=== PATIENT | female | born 1995 | race Two or more races ===

== ENCOUNTER 2017-04-03 12:16 | Emergency (ER) | payer OTHER ==
[2017-04-03 12:21] VITALS: BP 118/77; PULSE 89; TEMP 99.5; BMI 23.7
--- NOTE | 2017-04-03 12:42 | PDOC ---
History of Present Illness - General Chief Complaint: Rash Stated Complaint: hives Time Seen by Provider: 04/03/17 12:27 History Source: Patient Exam Limitations: No Limitations - History of Present Illness Initial Comments: 04/03/17 12:38 21 y/o female with rash on body since yesterday. No fever or chills. No new products. Using a cream for her folliculitis. Took Benadryl last night and a little better. No SOB. Feels fine otherwise. Itching but better this morning. Severity: Yes: mild Past History - Past Medical History Allergies/Adverse Reactions: Allergies Allergy/AdvReac Type Severity Reaction Status Date / Time No Known Allergies Allergy Verified 04/03/17 12:17 Home Medications: Ambulatory Orders Methylprednisolone [Medrol Dose Baljit] 4 mg PO ASDIR #21 tablet 04/03/17 Asthma: No Diabetes: No HTN: No Other medical history: denies - Immunization History Immunization Up to Date: Yes - Psycho/Social/Smoking Cessation Hx Anxiety: No Suicidal Ideation: No Smoking History: Never smoked Have you smoked in the past 12 months: No Hx Alcohol Use: Yes Drug/Substance Use Hx: No Substance Use Type: Alcohol Review of Systems - Review of Systems Able to Perform ROS?: Yes Is the patient limited Iraqi proficient: No Constitutional: No: Chills, Diaphoresis Respiratory: No: Cough, Shortness of Breath Cardiac (ROS): No: Edema, Palpitations ABD/GI: No: Nausea, Vomiting Integumentary: Yes: Erythema, Pruritus, Rash All Other Systems: Reviewed and Negative *Physical Exam - Vital Signs Last Vital Signs Temp Pulse Resp BP Pulse Ox 99.5 F 89 16 118/77 97 04/03/17 12:17 04/03/17 12:17 04/03/17 12:17 04/03/17 12:17 04/03/17 12:17 - Physical Exam General Appearance: Yes: Nourished, Appropriately Dressed. No: Apparent Distress HEENT: positive: EOMI, MANOLO, Normal ENT Inspection, Pharynx Normal Neck: positive: Normal Thyroid, Supple Respiratory/Chest: positive: Lungs Clear, Normal Breath Sounds Cardiovascular: positive: Regular Rhythm, Regular Rate, S1, S2 Vascular Pulses: Femoral (R): 4+, Femoral (L): 4+, Carotid (R): 4+, Carotid (L) : 4+, Dorsalis-Pedis (R): 4+, Doralis-Pedis (L): 4+ Gastrointestinal/Abdominal: positive: Normal Bowel Sounds, Flat, Soft. negative : Tender, Pulsatile Mass Musculoskeletal: positive: Normal Inspection. negative: CVA Tenderness Integumentary: positive: Normal Color, Dry, Warm, Rash (small red flat rash over thigh back and arm). negative: Jaundice, Hives, Swelling, Ecchymosis, Bruising Neurologic: positive: firer locomotive II-XII NML intact, Fully Oriented, Alert, Normal Mood/ Affect, Normal Response, Motor Strength 01/03 ED Treatment Course - ADDITIONAL ORDERS Additional order review: 04/03/17 12:41 Pt appears to have contact dermatitis Will prescribe Medrol dose pack and Benadryl If worsen return to ER *DC/Admit/Observation/Transfer Diagnosis at time of Disposition: Contact dermatitis Qualifiers: Contact dermatitis type: unspecified Contact dermatitis trigger: unspecified trigger Qualified Code(s): L25.9 - Unspecified contact dermatitis, unspecified cause - Discharge Dispostion Condition at time of disposition: Stable Admit: No - Patient Instructions Printed Discharge Instructions: DI for Contact Dermatitis Additional Instructions: Medrol dose pack as directed Benadryl 25 mg every 6 hr as needed Hydrocortisone cram 1% to arae 3x/day as needed for 1 week If worsen return to ER
== END 2017-04-03 12:54 | disposition home or self-care (01) ==
LOC: FER 12:16
DX: L25.9 Unspecified contact dermatitis, unspecified cause (principal)
CPT/HCPCS: 99281-25

== ENCOUNTER 2018-10-22 10:22 | Emergency (ER) | payer OTHER ==
--- NOTE | 2018-10-22 10:31 | PDOC ---
History of Present Illness - General Chief Complaint: Migraine Headache Stated Complaint: MIGRAINE Time Seen by Provider: 10/22/18 10:29 - History of Present Illness Initial Comments: 10/22/18 10:39 23 year old with a history of migraines followed by Dr. 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 denies nausea, vomtiing, fever able to sleep through night current;y headache is not bothering her she desires MRI now as she is unsure that she can make it to Friday She has MRI scheduled Friday and EEG with Neuro on Friday, She denies any other complaints at bedside. denies changes in vision or hearing , chest pain or shortness of breath. currently asymptomatic Past History - Past Medical History Allergies/Adverse Reactions: Allergies Allergy/AdvReac Type Severity Reaction Status Date / Time No Known Allergies Allergy Verified 10/22/18 10:43 Home Medications: Ambulatory Orders Aspirin/Acetaminophen/Caffeine [Excedrin Migraine Caplet] 1 each PO BID PRN Magnesium Oxide [Magnesium] 400 mg PO DAILY 10/22/18 Rizatriptan Benzoate [Rizatriptan] 10 mg PO Q12H PRN 10/22/18 Asthma: No Diabetes: No HTN: No - Immunization History Immunization Up to Date: Yes - Suicide/Smoking/Psychosocial Hx Smoking History: Never smoked Have you smoked in the past 12 months: No Hx Alcohol Use: Yes Drug/Substance Use Hx: No Substance Use Type: Alcohol *DC/Admit/Observation/Transfer Diagnosis at time of Disposition: Migraine Qualifiers: Migraine type: unspecified Status migrainosus presence: without status migrainosus Intractability: not intractable Qualified Code(s): G43.909 - Migraine, unspecified, not intractable, without status migrainosus - Discharge Dispostion Disposition: HOME Condition at time of disposition: Fair Decision to Admit order: No - Referrals Referrals: Malinda Dobbs MD [Primary Care Provider] - - Patient Instructions Printed Discharge Instructions: DI for Migraine Additional Instructions: You were seen in the ED for complaints of migraine symptoms and desire for MRI. There does not appear to be an immediate or emergent need for Brain CT or MRI at this time. As you have an MRI and EEG scheduled with your Neurologist Dr. Alcantara in 3 days, please keep this appointment and take your medications as directed. You are advised to follow up with your Primary Care Physician within 1 week. Try to use your glasses consistently to see if your symptoms resolve. If your symptoms persist your headache may caused by caffeine withdrawal. Avoid excessive alcohol use. Return to the ED immediately if you experience worsening migraine uncontrolled by medications, nausea, vomiting, acute dizziness or vertigo, fevers or loss of consciousness. - Post Discharge Activity
--- NOTE | 2018-10-22 10:47 | PDOC ---
Attending Attestation - Resident Resident Name: Davina Perales - ED Attending Attestation I have performed the following: I have examined & evaluated the patient, The case was reviewed & discussed with the resident, I agree w/resident's findings & plan, Exceptions are as noted - HPI HPI: 10/22/18 10:51 23y F hx of migraine on tryptans/magnesium being followed by neurology presents with intermittent headache since friday, improved with meds at home but not completely resolved. Pt ntose her headache seems worse in the AM, and improved throughout the day. Endorses photo/phonophobia, is pressure like around her temples - no associated n/v, neck pain, back pain, blurry vision, numbness/ tingling/weakness, fever/chills. pt notse she drinks 1 cup of coffee in the AM and her headache seems to im,prove with her coffee intake. Her father also notes thather headache seems to improve when she uses her glasses. Pt has outpatient MRI/EEG scheduled for next week, but [presented today due to rquesting MRI. nots her headache is currently resolved and is no pain currently (last time she had pain was this AM). - Physicial Exam PE: 10/22/18 12:24 ExamL General: no acute distress, well appearing, well neurished HEAD: Normocephalic, atraumatic. EYES: extraocular movements intact, sclera anicteric, conjunctiva clear. EXTREMITIES: Normal range of motion, NEUROLOGICAL: No facial assymetry, Normal speech, moving all 4 extremities spontaneously ands ymemtrically, normal gait PSYCH: Normal mood, normal affect. SKIN: Warm, Dry, normal turgor, - Medical Decision Making 10/22/18 12:25 suspect tension headache vs migraine headache no clinical suspicion for a dangerous headache will have pt use her glassess more regularly, if this does not resolve her haedache, will have her titrate off caffeine. will have her fu with neuro for further management
[2018-10-22 10:51] VITALS: BP 117/72; PULSE 64; TEMP 98.3; BMI 25.8
== END 2018-10-22 11:50 | disposition home or self-care (01) ==
LOC: FER 10:22
DX: G43.909 Migraine, unspecified, not intractable, without status migrainosus (principal)
CPT/HCPCS: 99281-25

== ENCOUNTER 2019-07-25 02:52 | Day surgery (SDC) | payer BC, OTHER ==
--- NOTE | 2019-07-25 03:14 | PDOC ---
History of Present Illness - General Chief Complaint: Pain, Acute Stated Complaint: ABD PAIN Time Seen by Provider: 07/25/19 02:54 - History of Present Illness Initial Comments: 07/25/19 03:15 This 24-year-old woman with a history of GERD and migraine headache presents with few hour history of abdominal pain. Patient was awakened by burning epigastric pain at approximately 1 AM today. Over the next hour, burning pain resolved spontaneously but she began to have right upper quadrant and right lower quadrant crampy pain associated with nausea.Although the pain has been intermittently severe, she currently has no pain or nausea. Patient states that she was unable to vomit; last bowel movement was approximately 24 hours ago and was normal. No fever/chills. Patient is currently completing a normal menstrual cycle. She denies dysuria, hematuria, urinary frequency/urgency. No unusual food ingestion/outside prepared meal. 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 No known allergies/on no medications Non-smoker No daily alcohol or recreational drug use Past History - Past Medical History Allergies/Adverse Reactions: Allergies Allergy/AdvReac Type Severity Reaction Status Date / Time No Known Allergies Allergy Verified 10/22/18 10:43 Home Medications: Ambulatory Orders Aspirin/Acetaminophen/Caffeine [Excedrin Migraine Caplet] 1 each PO BID PRN Magnesium Oxide [Magnesium] 400 mg PO DAILY 10/22/18 Rizatriptan Benzoate [Rizatriptan] 10 mg PO Q12H PRN 10/22/18 Acetaminophen [Tylenol .Extra-Strength -] 1,000 mg PO Q6H PRN tablet 07/26/19 oxyCODONE HCL [Roxicodone -] 5 mg PO Q6H PRN #10 tablet MDD 4 tabs 07/26/19 Asthma: No COPD: No Diabetes: No HTN: No - Immunization History Immunization Up to Date: Yes - Psycho Social/Smoking Cessation Hx Smoking History: Never smoked Have you smoked in the past 12 months: No Hx Alcohol Use: Yes Drug/Substance Use Hx: No Substance Use Type: Alcohol Review of Systems - Review of Systems Able to Perform ROS?: Yes Comments:: 12 point review of systems is negative except for what is noted in the history of present illness *Physical Exam - Vital Signs Last Vital Signs Temp Pulse Resp BP Pulse Ox 98.6 F 69 16 119/68 97 07/25/19 02:53 07/25/19 02:53 07/25/19 02:53 07/25/19 02:53 07/25/19 02:53 - Physical Exam Comments: GENERAL: Adult female, alert and oriented x3 in no acute distress HEAD: Normal with no signs of trauma. EYES: PERRLA, EOMI, sclera anicteric, conjunctiva clear. ENT: Ears normal, nares patent, oropharynx clear without exudates. Moist mucous membranes. NECK: Normal range of motion, supple without lymphadenopathy, JVD, or masses. LUNGS: Breath sounds equal, clear to auscultation bilaterally. No wheezes, and no crackles. HEART:Regular rate and rhythm, normal S1 and S2 without murmur, rub or gallop. ABDOMEN:.normal bowel sounds; moderate right lower quadrant tenderness without rebound or involuntary guarding; no masses No distention. EXTREMITIES: Normal range of motion, no edema. No clubbing or cyanosis. No erythema, or tenderness. NEUROLOGICAL: Cranial nerves II through XII grossly intact. Normal speech. No focal neurologic deficits MUSCULOSKELETAL: Back non-tender to palpation, no CVA tenderness SKIN: Warm, Dry, normal turgor, no rashes or lesions noted. ED Treatment Course - LABORATORY CBC & Chemistry Diagram: 07/26/19 08:45 07/26/19 08:45 ED Progress Note - Progress Note Progress Note: This 24-year-old woman presents with few hour history of abdominal pain, first epigastric and right-sided (flank, then right lower quadrant). Although she initially had nausea, this symptom has resolved but pain has persisted. Exam is noted above: Tenderness without peritoneal irritation signs in the right lower quadrant Differential includes acute appendicitis, gastroenteritis, renal colic, ovarian process CBC/chemistry profile/PGU/urinalysis sent 07/25/19 06:43 Medical Decision Making - Medical Decision Making 07/25/19 06:33 Laboratory evaluation notable for white blood cell count of 15,300 with neutrophil predominance (84%); labs otherwise unremarkable (some hematuria in urinalysis but patient is currently menstruating) Since the patient continues to have right lower quadrant pain (states that it somewhat worse), although she has not redeveloped nausea, and has elevated white blood cell count, abdominal/pelvic CT with IV and oral contrast will be performed to fully rule out acute appendicitis. Results and plan discussed with the patient and her mother who understand and agree. Discharge - Discharge Information Problems reviewed: Yes Clinical Impression/Diagnosis: Appendicitis Qualifiers: Appendicitis type: acute appendicitis Acute appendicitis type: with localized peritonitis Appendicitis gangrene presence: without gangrene Appendicitis perforation presence: without perforation Appendicitis abscess presence: without abscess Qualified Code(s): K35.30 - Acute appendicitis with localized peritonitis, without perforation or gangrene Condition: Improved - Additional Discharge Information - Follow up/Referral - Patient Discharge Instructions - Post Discharge Activity
[2019-07-25 05:13] LABS: BASO % 0.2 % (0-2.0); EOS % 0.7 % (0-4.5); HEMATOCRIT 38.9 % (32.4-45.2); HEMOGLOBIN 12.5 GM/dL (10.7-15.3); LYMPH % 11.3 % (8-40); MCH 24.3 pg (25.7-33.7); MCHC 32.1 g/dl (32.0-36.0); MEAN CELL VOLUME 75.8 fl (80-96); MEAN PLT VOLUME 9.1 fl (7.5-11.1); MONO % 4.1 % (3.8-10.2); NEUT % 83.7 % (42.8-82.8); PLATELET COUNT 280 K/MM3 (134-434); RBC 5.13 M/mm3 (3.60-5.2); RDW 14.3 % (11.6-15.6); WHITE BLOOD COUNT 15.3 K/mm3 (4.0-10.0)
[2019-07-25 05:16] LABS: EPI CELLS 8.9 /HPF (0-5/HPF); HYALINE CASTS 5 /lpf (0-8); PH,URINE 6.5 (5.0-8.0); URINE APPEARANCE CLEAR; URINE BILIRUBIN NEGATIVE (NEGATIVE); URINE COLOR YELLOW; URINE GLUCOSE (UA) NEGATIVE (NEGATIVE); URINE KETONE NEGATIVE (NEGATIVE); URINE LEUK ESTERASE NEGATIVE (NEGATIVE); URINE NITRITE NEGATIVE (NEGATIVE); URINE PROTEIN NEGATIVE (NEGATIVE); URINE RBC 4 /hpf (0-4); URINE UROBILINOGEN 0.2 mg/dL (0.2-1.0); URINE WBC 5 /hpf (0-5)
[2019-07-25 05:41] LABS: ALBUMIN 4.1 g/dl (3.4-5.0); BILIRUBIN,TOTAL 0.2 mg/dL (0.2-1); BLOOD UREA NITROGEN 14.6 mg/dL (7-18); CALCIUM 8.8 mg/dL (8.5-10.1); CREATININE 0.5 mg/dL (0.55-1.3); POTASSIUM 3.6 mmol/L (3.5-5.1); TOT PROT 6.9 g/dl (6.4-8.2)
[2019-07-25] MEDS ORDERED: CEFTRIAXONE 1,000 MG in DEXTROSE 5%-WATER - 50 ML IVPB ONE (09:27)
--- NOTE | 2019-07-25 09:30 | PDOC ---
*Physical Exam - Vital Signs Last Vital Signs Temp Pulse Resp BP Pulse Ox 98.5 F 68 16 113/70 100 07/25/19 06:32 07/25/19 06:32 07/25/19 06:32 07/25/19 06:32 07/25/19 06:32 ED Treatment Course - LABORATORY CBC & Chemistry Diagram: 07/25/19 03:30 07/25/19 03:30 - ADDITIONAL ORDERS Additional order review: Laboratory Results 07/25/19 07/25/19 07/25/19 03:30 03:30 03:30 Sodium 137 Potassium 3.6 Chloride 105 Carbon Dioxide 28 Anion Gap 4 L BUN 14.6 Creatinine 0.5 L Est GFR (CKD-EPI)AfAm 155.90 Est GFR (CKD-EPI)NonAf 134.52 Random Glucose 100 Calcium 8.8 Total Bilirubin 0.2 AST 11 L ALT 23 Alkaline Phosphatase 45 Total Protein 6.9 Albumin 4.1 Urine Color Yellow Urine Appearance Clear Urine pH 6.5 Ur Specific [place] 1.028 Urine Protein Negative Urine Glucose (UA) Negative Urine Ketones Negative Urine Blood 3+ H Urine Nitrite Negative Urine Bilirubin Negative Urine Urobilinogen 0.2 Ur Leukocyte Esterase Negative Urine WBC (Auto) 5 Urine RBC (Auto) 4 Urine Casts (Auto) 5 U Epithel Cells (Auto) 8.9 Urine Bacteria (Auto) 145.0 Urine HCG, Qual Negative 07/25/19 03:30 RBC 5.13 MCV 75.8 L MCHC 32.1 RDW 14.3 MPV 9.1 Neutrophils % 83.7 H Lymphocytes % 11.3 Monocytes % 4.1 Eosinophils % 0.7 Basophils % 0.2 Medical Decision Making - Medical Decision Making 07/25/19 09:29 pt signed out to al from Dr Lancaster around 7am. Pt has been comfortable here in ED and has declined abx. CT suggestive of acute appendicitis. will give flagyl/ctx will discuss with surgery 07/25/19 10:20 Case was discussed with WING Lara - Accepted for admission for further management of appendicitis, Accepted to Dr. Aceves service of medicine Case was discussed with Dr. Cannon, request transfer to [facility] as There is no weekend OR capability here Case discussed in detail with admitting physician including history, physical exam and ancillary studies. Admitting physician has assumed care for the patient, will follow all pending diagnostics and will complete the evaluation and treatment. Discharge - Discharge Information Problems reviewed: Yes Clinical Impression/Diagnosis: Appendicitis Qualifiers: Appendicitis type: acute appendicitis Acute appendicitis type: with localized peritonitis Appendicitis gangrene presence: without gangrene Appendicitis perforation presence: without perforation Appendicitis abscess presence: without abscess Qualified Code(s): K35.30 - Acute appendicitis with localized peritonitis, without perforation or gangrene Condition: Stable - Admission Yes - Follow up/Referral - Patient Discharge Instructions - Post Discharge Activity
[2019-07-25] MEDS ORDERED: cefTRIAXone SODIUM 1 GM VIAL ONE (09:35)
[2019-07-25] MEDS ORDERED: PROMETHAZINE HCL 25 MG/1 ML VIAL IVPUSH PRN ×2 (12:52→15:02)
[2019-07-25] MEDS ORDERED: ONDANSETRON 4 MG/2 ML VIAL IVPUSH PRN ×2 (12:52→15:02)
[2019-07-25] MEDS ORDERED: PROPOFOL 20 ML ONE (12:57)
[2019-07-25] MEDS ORDERED: ROCURONIUM BROMIDE 50 MG/5 ML SYRINGE ONE (12:57)
[2019-07-25] MEDS ORDERED: MIDAZOLAM HCL 2 MG/2 ML SINGLE DOSE VIAL ONE (12:58)
[2019-07-25] MEDS ORDERED: LACTATED RINGERS SOLUTION 1,000 ML IV SCH (13:00)
--- NOTE | 2019-07-25 13:02 | CONSULT ---
- Consultation REQUESTING PROVIDER: Shona ESCALERA CONSULT REQUEST: We have been asked to surgically evaluate this patient for acute appendicitis. PCP:Alonzo Aceves MD HISTORY OF PRESENT ILLNESS:24 y/o female presented to the [facility] ED w/ epigastric to RLQ crampy/sharp abdominal pain which started and woke her from her sleep; she came to the ED for evaluation; pain increases w/movement and abates w/ laying still; no radiation form the RLQ; no other GI//NAIL STICKER c/o's. She is G0PO. PMHx: migraine headaches PSHx: none Home Medications Medication Instructions Recorded Aspirin/Acetaminophen/Caffeine 1 each PO BID PRN 10/22/18 [Excedrin Migraine Caplet] Magnesium Oxide [Magnesium] 400 mg PO DAILY 10/22/18 Rizatriptan Benzoate [Rizatriptan] 10 mg PO Q12H PRN 10/22/18 Allergies Allergy/AdvReac Type Severity Reaction Status Date / Time No Known Allergies Allergy Verified 10/22/18 10:43 REVIEW OF SYSTEMS: CONSTITUTIONAL: Absent: fever, chills, diaphoresis, generalized weakness, malaise, loss of appetite, weight change CARDIOVASCULAR: Absent: chest pain, syncope, palpitations, irregular heart rate, lightheadedness , peripheral edema RESPIRATORY: Absent: cough, shortness of breath, dyspnea with exertion, wheezing, stridor, hemoptysis GASTROINTESTINAL: Absent: abdominal pain, abdominal distension, nausea, vomiting, diarrhea, constipation, melena, hematochezia GENITOURINARY: Absent: dysuria, frequency, urgency, hesitancy, hematuria, flank pain, genital pain MUSCULOSKELETAL: Absent: myalgia, arthralgia, joint swelling, back pain, neck pain SKIN: Absent: rash, itching, pallor HEMATOLOGIC/IMMUNOLOGIC: Absent: easy bleeding, easy bruising, lymphadenopathy NEUROLOGIC: Absent: headache, focal weakness, paresthesias, dizziness, unsteady gait, seizure, mental status changes, bladder or bowel incontinence PSYCHIATRIC: Absent: anxiety, depression, suicidal or homicidal ideation, hallucinations. PHYSICAL EXAM: GENERAL: Awake, alert, and fully oriented, in no acute distress. HEAD: Normal with no signs of trauma. EYES: PERRL, sclera anicteric, conjunctiva clear. NECK: Normal ROM, supple without lymphadenopathy, JVD, or masses. ABDOMEN: Soft, tender in the RLQ, not distended, normoactive bowel sounds, guarding is present with rebound, no masses. No organomegaly. No hernias; psoas ; Rovsings and obturator signs are present. MUSCULOSKELETAL: Normal ROM at all joints. No bony deformities or tenderness. No CVA tenderness. UPPER EXTREMITIES: 2+ pulses, warm, well-perfused. No cyanosis. Cap refill <2 seconds. No peripheral edema. LOWER EXTREMITIES: 2+ pulses, warm, well-perfused. No calf tenderness. No peripheral edema. NEUROLOGICAL: Normal speech, gait not observed. PSYCH: Cooperative. Good eye contact. Appropriate mood and affect. SKIN: Warm, dry, normal turgor, no rashes or lesions noted. Vital Signs Temperature 99.1 F 07/25/19 11:27 Pulse Rate 68 07/25/19 11:27 Respiratory Rate 15 07/25/19 11:27 Blood Pressure 134/90 07/25/19 11: O2 Sat by Pulse Oximetry (%) 100 07/25/19 09:30 Lab Results WBC 15.3 K/mm3 (4.0-10.0) H 07/25/19 03:30 RBC 5.13 M/mm3 (3.60-5.2) 07/25/19 03:30 Hgb 12.5 GM/dL (10.7-15.3) 07/25/19 03:30 Hct 38.9 % (32.4-45.2) 07/25/19 03:30 MCV 75.8 fl (80-96) L 07/25/19 03:30 MCHC 32.1 g/dl (32.0-36.0) 07/25/19 03:30 RDW 14.3 % (11.6-15.6) 07/25/19 03:30 Plt Count 280 K/MM3 (134-434) 07/25/19 03:30 Sodium 137 mmol/L (136-145) 07/25/19 03:30 Potassium 3.6 mmol/L (3.5-5.1) 07/25/19 03:30 Chloride 105 mmol/L (98-107) 07/25/19 03:30 Carbon Dioxide 28 mmol/L (21-32) 07/25/19 03:30 Anion Gap 4 MMOL/L (8-16) L 07/25/19 03:30 BUN 14.6 mg/dL (7-18) 07/25/19 03:30 Creatinine 0.5 mg/dL (0.55-1.3) L 07/25/19 03:30 Random Glucose 100 mg/dL (74-106) 07/25/19 03:30 Calcium 8.8 mg/dL (8.5-10.1) 07/25/19 03:30 CT scan a/p reviewed images and report c/w acute appendicitis. IMP: acute appendicitis PLAN: Laparoscopic possible open appendectomy; r/b/t/a/'s d/w the patient and her parents and informed consent obtained. Jourdan Cannon MD FACS
[2019-07-25] MEDS ORDERED: LIDOCAINE HCL/PF 2% SDV 5ML VIAL ONE (13:07)
[2019-07-25] MEDS ORDERED: DEXAMETHASONE SOD PHOSPHATE 4 MG/1 ML VIAL ONE (13:12)
[2019-07-25] MEDS ORDERED: KETOROLAC TROMETHAMINE 30 MG/1 ML VIAL ONE (13:19)
[2019-07-25] MEDS ORDERED: BUPIVACAINE HCL/PF 0.5% (5 MG/ML) 30 ML VIAL IJ ONE (13:31)
[2019-07-25] MEDS ORDERED: NEOSTIGMINE METHYLSULFATE 0.5 MG/ML - 10 ML MDV ONE (13:44)
[2019-07-25] MEDS ORDERED: BENZOIN TINCTURE SWABSTICK TP ONE (14:05)
--- NOTE | 2019-07-25 14:31 | OP ---
Operative Note - Note: Operative Date: 07/25/19 Pre-Operative Diagnosis: acute appendicitis Operation: laparoscopic appendectomy Findings: acute appendicitis; appendix was retrocecal Post-Operative Diagnosis: Same as Pre-op Surgeon: Jourdan Cannon Anesthesiologist/MARKETING PRODUCTION MANAGER: Willem Goff Anesthesia: General Specimens Removed: appendix Estimated Blood Loss (mls): 10
[2019-07-25] MEDS: LACTATED RINGERS SOLUTION 1,000 ML IV SCH (15:59)
--- NOTE | 2019-07-25 16:22 | HP ---
CHIEF COMPLAINT: Abdominal pain HISTORY OF PRESENT ILLNESS: This is a 24 year old woman who went to the [facility] ED this morning complaining of abdominal pain. She says she was awakened from sleep at 1 am by burning epigastric pain. She thought it was heartburn but after it improved, she had severe right-sided abdominal/flank cramping pain associated with nausea. She denies fever, chills, vomiting, diarrhea, melena, rectal bleeding, dysuria, hematuria, urinary frequency. PAST MEDICAL HISTORY: Migraine headaches PAST SURGICAL HISTORY: None Allergies No Known Allergies Allergy (Verified 10/22/18 10:43) Social History: Smoking: Denies Alcohol: Social Drugs: Denies Recent Travel: None Home Medications Medication Instructions Recorded Aspirin/Acetaminophen/Caffeine 1 each PO BID PRN 10/22/18 [Excedrin Migraine Caplet] Magnesium Oxide [Magnesium] 400 mg PO DAILY 10/22/18 Rizatriptan Benzoate [Rizatriptan] 10 mg PO Q12H PRN 10/22/18 REVIEW OF SYSTEMS CONSTITUTIONAL: Absent: fever, chills, diaphoresis, generalized weakness, malaise, loss of appetite, weight change HEENT: Absent: rhinorrhea, nasal congestion, throat pain, throat swelling, difficulty swallowing, mouth swelling, ear pain, eye pain, visual changes CARDIOVASCULAR: Absent: chest pain, syncope, palpitations, lightheadedness, peripheral edema RESPIRATORY: Absent: cough, shortness of breath, dyspnea with exertion, orthopnea, wheezing, stridor, hemoptysis GASTROINTESTINAL: Present: abdominal pain, nausea. Absent: abdominal distension , vomiting, diarrhea, constipation, melena, hematochezia GENITOURINARY: Present: flank pain. Absent: dysuria, frequency, urgency, hesitancy, hematuria MUSCULOSKELETAL: Absent: myalgia, arthralgia, joint swelling, back pain, neck pain SKIN: Absent: rash, itching, pallor HEMATOLOGIC/IMMUNOLOGIC: Absent: easy bleeding, easy bruising, lymphadenopathy, frequent infections ENDOCRINE: Absent: unexplained weight gain, unexplained weight loss, heat intolerance, cold intolerance NEUROLOGIC: Absent: headache, focal weakness, paresthesias, dizziness, unsteady gait, seizure, mental status changes, bladder or bowel incontinence PSYCHIATRIC: Absent: anxiety, depression, suicidal or homicidal ideation, hallucinations. PHYSICAL EXAMINATION Vital Signs - 24 hr 1107/25/19 07/25/19 02:53 06:32 09:30 Temperature 98.6 F 98.5 F 98.7 F Pulse Rate 69 Pulse Rate [ 68 79 Radial] Respiratory 16 16 Rate Blood Pressure 119/68 Blood Pressure 113/70 138/92 [Arm] O2 Sat by Pulse 97 100 100 Oximetry (%) 07/25/19 07/25/19 07/25/19 11:27 14:16 14:30 Temperature 99.1 F 98.1 F Pulse Rate 68 108 H 81 Pulse Rate [ Radial] Respiratory 15 16 14 Rate Blood Pressure 134/90 148/91 139/77 Blood Pressure [Arm] O2 Sat by Pulse 100 100 Oximetry (%) 07/25/19 07/25/19 07/25/19 14:45 15:00 15:15 Temperature Pulse Rate 69 62 80 Pulse Rate [ Radial] Respiratory 14 14 16 Rate Blood Pressure 137/74 128/73 116/60 Blood Pressure [Arm] O2 Sat by Pulse 100 100 99 Oximetry (%) 07/25/19 15:30 Temperature 98.0 F Pulse Rate 72 Pulse Rate [ Radial] Respiratory 12 Rate Blood Pressure 129/65 Blood Pressure [Arm] O2 Sat by Pulse 100 Oximetry (%) GENERAL: Awake, alert, and fully oriented, in no acute distress. HEAD: Normal with no signs of trauma. EYES: Pupils equal, round and reactive to light, extraocular movements intact, sclera anicteric, conjunctiva clear. EARS, NOSE, THROAT: Ears normal, nares patent, oropharynx clear without exudates. Moist mucous membranes. NECK: Normal range of motion, supple without lymphadenopathy, JVD, or masses. LUNGS: Breath sounds equal, clear to auscultation bilaterally. No wheezes, and no crackles. No accessory muscle use. HEART: Regular rate and rhythm, normal S1 and S2 without murmur, rub or gallop. ABDOMEN: Soft, (+) mild diffuse tenderness, (+) mild distention, normoactive bowel sounds, no guarding, no rebound, no masses. No hepatomegaly or splenomegaly. MUSCULOSKELETAL: Normal range of motion at all joints. No bony deformities or tenderness. No CVA tenderness. UPPER EXTREMITIES: 2+ pulses, warm, well-perfused. No cyanosis. No clubbing. No peripheral edema. LOWER EXTREMITIES: 2+ pulses, warm, well-perfused. No calf tenderness. No peripheral edema. NEUROLOGICAL: Cranial nerves II-XII intact. Normal speech. PSYCHIATRIC: Cooperative. Good eye contact. Appropriate mood and affect. SKIN: Warm, dry, normal turgor, no rashes or lesions noted, normal capillary refill. Laboratory Results - last 24 hr 07/25/19 07/25/19 07/25/19 03:30 03:30 03:30 WBC 15.3 H RBC 5.13 Hgb 12.5 Hct 38.9 MCV 75.8 L MCH 24.3 L MCHC 32.1 RDW 14.3 Plt Count 280 MPV 9.1 Absolute Neuts (auto) 12.8 H Neutrophils % 83.7 H Lymphocytes % 11.3 Monocytes % 4.1 Eosinophils % 0.7 Basophils % 0.2 Nucleated RBC % 0 Sodium 137 Potassium 3.6 Chloride 105 Carbon Dioxide 28 Anion Gap 4 L BUN 14.6 Creatinine 0.5 L Est GFR (CKD-EPI)AfAm 155.90 Est GFR (CKD-EPI)NonAf 134.52 Random Glucose 100 Calcium 8.8 Total Bilirubin 0.2 AST 11 L ALT 23 Alkaline Phosphatase 45 Total Protein 6.9 Albumin 4.1 Urine Color Urine Appearance Urine pH Ur Specific [place] Urine Protein Urine Glucose (UA) Urine Ketones Urine Blood Urine Nitrite Urine Bilirubin Urine Urobilinogen Ur Leukocyte Esterase Urine WBC (Auto) Urine RBC (Auto) Urine Casts (Auto) U Epithel Cells (Auto) Urine Bacteria (Auto) Urine HCG, Qual Negative 07/25/19 03:30 WBC RBC Hgb Hct MCV MCH MCHC RDW Plt Count MPV Absolute Neuts (auto) Neutrophils % Lymphocytes % Monocytes % Eosinophils % Basophils % Nucleated RBC % Sodium Potassium Chloride Carbon Dioxide Anion Gap BUN Creatinine Est GFR (CKD-EPI)AfAm Est GFR (CKD-EPI)NonAf Random Glucose Calcium Total Bilirubin AST ALT Alkaline Phosphatase Total Protein Albumin Urine Color Yellow Urine Appearance Clear Urine pH 6.5 Ur Specific [place] 1.028 Urine Protein Negative Urine Glucose (UA) Negative Urine Ketones Negative Urine Blood 3+ H Urine Nitrite Negative Urine Bilirubin Negative Urine Urobilinogen 0.2 Ur Leukocyte Esterase Negative Urine WBC (Auto) 5 Urine RBC (Auto) 4 Urine Casts (Auto) 5 U Epithel Cells (Auto) 8.9 Urine Bacteria (Auto) 145.0 Urine HCG, Qual ASSESSMENT/PLAN: This is a 24 year old woman who presented to the ED today with abdominal pain and nausea. 1. Acute appendicits - Ceftriaxone, Flagyl given in ED - s/p laparoscopic appendectomy - Pain control - IV fluid - Clear liquid diet and advance as tolerated - Expect discharge tomorrow 2. History of migraine headaches Family Medical History Family History: Unremarkable Visit type - Emergency Visit Emergency Visit: Yes ED Registration Date: 07/25/19 Care time: The patient presented to the Emergency Department on the above date and was hospitalized for further evaluation of their emergent condition. - New Patient This patient is new to me today: Yes Date on this admission: 07/25/19 - Critical Care Critical Care patient: No
[2019-07-25 16:54] VITALS: BMI 25.8
[2019-07-25] MEDS: oxyCODONE HCL 5 MG TABLET PO PRN (17:11)
--- NOTE | 2019-07-25 17:35 | OP ---
DATE OF OPERATION: 07/25/2019 PREOPERATIVE DIAGNOSIS: Acute appendicitis. POSTOPERATIVE DIAGNOSIS: Acute appendicitis. PROCEDURE: Laparoscopic appendectomy. SURGEON: Jourdan Cannon MD ANESTHESIA: General. OPERATIVE FINDINGS: Acute appendicitis. The appendix was retrocecal in position. The rest of the findings were unremarkable. PROCEDURE: The patient was placed on the operating table in the supine position. After induction of general anesthesia and placement of a Vasquez catheter, the patient's abdomen was prepped with ChloraPrep and draped in sterile fashion. A timeout was taken and pneumoperitoneum established above the umbilicus using the Veress needle to an intraabdominal pressure of 15 mmHg. A 5-mm umbilical port was placed and laparoscopy carried out and the previously-noted findings were observed. An additional 12-mm suprapubic port and left lower quadrant 5-mm port were placed and then the appendix identified at the confluence of the 3 taeniae and it was grasped and elevated. The mesoappendix was serially divided using a LigaSure device, as were adhesions of the appendix to the lateral peritoneal wall. Once completely free and mobilized down to the base, a purple-load Endo ROBERT was fired across the base of the appendix. The appendix was placed in an EndoCatch and brought out through the suprapubic port and pneumoperitoneum re-established. There was no evidence of bleeding from the staple line and 3 rows of agueda were intact at the appendiceal stump. Next, all ports were removed under laparoscopic vision without evidence of bleeding from the port sites, and the pneumoperitoneum evacuated. The port sites were infiltrated with 0.5% Marcaine and the defect at the suprapubic port site was closed with a single 0 Vicryl [id number] suture. Skin incisions were closed with 4-0 Monocryl in subcuticular fashion followed by Steri-Strips and Band-Aid dressings. The Vasquez catheter was removed and the patient extubated in the operating room and transferred to the post-anesthesia care unit in stable condition, awake and alert. Estimated blood loss 10 mL. Replacement: Crystalloid. Drains: None. Specimen: Appendix to Pathology. I, Jourdan Cannon, was physically present in the operating room from the time the patient was placed on the operating table until she was transferred to the post-anesthesia care unit in [place]. MD VLAD [id number] MTDD
[2019-07-26] MEDS: oxyCODONE HCL 5 MG TABLET PO PRN (01:25)
[2019-07-26] MEDS: LACTATED RINGERS SOLUTION 1,000 ML IV SCH (01:27)
[2019-07-26 05:25] VITALS: BP 123/70; PULSE 75; TEMP 98.2
[2019-07-26] MEDS ORDERED: ACETAMINOPHEN 500 MG TABLET (FP) PO PRN (07:51)
--- NOTE | 2019-07-26 07:52 | PN ---
Progress Note (short form) - Note Progress Note: POD 1, s/p lap appy. Pt seen and examined. Doing well this AM. no issues overnight. Tolerating clears. Has been oob to restroom, voiding. No flatus yet. Denies cp/sob, n/v/d. Vital Signs Temp 98.2 F 07/26/19 05:24 Pulse 75 07/26/19 05:24 Resp 18 07/26/19 05:24 BP 123/70 07/26/19 05:24 Pulse Ox 96 07/25/19 21:00 Intake & Output 07/25/19 07/25/19 07/26/19 11:59 23:59 11:59 Intake Total 200 1000 2000 Output Total 110 Balance 619 909 0549 Weight 146 lb 9.718 oz 146 lb Intake: IV 600 1500 Lactated Ringers Solution 1500 1,000 ml @ 125 mls/hr IV ASDIR KESHIA Rx#: [id number] IVPB 200 Oral 400 500 Output: Urine 100 Estimated Blood Loss 10 Other: Voiding Method Toilet Toilet # Unmeasured Voids Void 3 Bowel Movement No No Height 5 ft 3 in 5 ft 3 in Body Mass Index (BMI) 25.9 25.8 Weight Measurement Method Built in [facility] Weight Measurement Method Est/Stated by Patient CBC, BMP 07/26/19 08:45 07/26/19 08:45 Gen: awake, alert, nad, mom at bedside Resp: unlabored on Ra Abdo: soft, nt/nd, + bowel sounds. Dressings c/d/i. A/P: 24 y/o F w/ no significant PMHx, admitted 07/25 after presenting with abdominal pain, found to have acute appendicitis, now POD 1, s/p Lap appy. Afebrile, vss Leukocytosis resolved -Regular diet -OOB ad mimi -Keep dressings c/d/i -Pain control -VS per protocol -May be discharged later today per medical team if tolerating regular diet d/w attending Dr Cannon
--- NOTE | 2019-07-26 08:47 | PN ---
Progress Note (short form) - Note Progress Note: Anesthesia Post Op Note Pt awake and alert,denies n/v, no puritis ambulating well no urinary retention pain well controlled VSS no apparent anesthesia compliactions Franko Duckworth.
[2019-07-26 09:25] LABS: BASO % 0.4 % (0-2.0); EOS % 0.6 % (0-4.5); HEMATOCRIT 36.8 % (32.4-45.2); HEMOGLOBIN 11.9 GM/dL (10.7-15.3); LYMPH % 25.6 % (8-40); MCH 24.3 pg (25.7-33.7); MCHC 32.3 g/dl (32.0-36.0); MEAN CELL VOLUME 75.2 fl (80-96); MEAN PLT VOLUME 8.7 fl (7.5-11.1); MONO % 5.3 % (3.8-10.2); NEUT % 68.1 % (42.8-82.8); PLATELET COUNT 275 K/MM3 (134-434); RBC 4.89 M/mm3 (3.60-5.2); RDW 14.3 % (11.6-15.6); WHITE BLOOD COUNT 8.6 K/mm3 (4.0-10.0)
[2019-07-26 09:59] LABS: BLOOD UREA NITROGEN 8.3 mg/dL (7-18); CALCIUM 9.5 mg/dL (8.5-10.1); CREATININE 0.7 mg/dL (0.55-1.3); POTASSIUM 3.5 mmol/L (3.5-5.1)
[2019-07-26] MEDS ORDERED: FLU VACCINE QUAD 60 MCG/0.5 ML (MDV 19-20) IM ONE (10:00)
--- NOTE | 2019-07-26 10:23 | DS ---
Physical Exam: SUBJECTIVE: Patient seen and examined OBJECTIVE: Vital Signs Period Temp Pulse Resp BP Sys/Daly Pulse Ox Last 24 Hr 98 F-99.1 F 62-108 12-19 112-148/59-91 96-100 PHYSICAL EXAM GENERAL: The patient is awake, alert, and fully oriented, in no acute distress. HEAD: Normal with no signs of trauma. EYES: PERRL, extraocular movements intact, sclera anicteric, conjunctiva clear. ENT: Ears normal, nares patent, oropharynx clear without exudates, moist mucous membranes. NECK: Trachea midline, full range of motion, supple. LUNGS: Breath sounds equal, clear to auscultation bilaterally, no wheezes, no crackles, no accessory muscle use. HEART: Regular rate and rhythm, S1, S2 without murmur, rub or gallop. ABDOMEN: Soft, nontender, nondistended, normoactive bowel sounds, no guarding, no rebound, no hepatosplenomegaly, no masses. EXTREMITIES: 2+ pulses, warm, well-perfused, no edema. NEUROLOGICAL: Cranial nerves II through XII grossly intact. Normal speech, gait not observed. PSYCH: Normal mood, normal affect. SKIN: Warm, dry, normal turgor, no rashes or lesions noted. LABS Laboratory Results - last 24 hr 07/26/19 07/26/19 08:45 08:45 WBC 8.6 RBC 4.89 Hgb 11.9 Hct 36.8 MCV 75.2 L MCH 24.3 L MCHC 32.3 RDW 14.3 Plt Count 275 MPV 8.7 Absolute Neuts (auto) 5.8 Neutrophils % 68.1 Lymphocytes % 25.6 D Monocytes % 5.3 Eosinophils % 0.6 Basophils % 0.4 Nucleated RBC % 0 Sodium 137 Potassium 3.5 Chloride 104 Carbon Dioxide 27 Anion Gap 6 L BUN 8.3 Creatinine 0.7 Est GFR (CKD-EPI)AfAm 139.57 Est GFR (CKD-EPI)NonAf 120.42 Random Glucose 132 H Calcium 9.5 HOSPITAL COURSE: Date of Admission:07/25/19 Date of Discharge: 07/26/19 Minutes to complete discharge: 30 Discharge Summary Problems reviewed: Yes Reason For Visit: APPENDICITIS Current Active Problems Appendicitis (Acute) Hospital Course: This is a 24 year old woman who presented to the [facility] ED on July 25 complaining of abdominal pain. Initially she had burning epigastric pain that had awakened her from sleep at 1 am. After it improved, she developed severe right-sided cramping abdominal/flank pain associated with nausea. She denied having fever, chills, vomiting, diarrhea, melena, rectal bleeding, dysuria, hematuria, urinary frequency. In the ED, she had WBC 15.[address] was [address] showed acute appendicitis. Ceftriaxone and Flagyl were given. She was seen by Dr. Cannon and underwent laparoscopic appendectomy. She did well postoperatively and is being discharged home on July 26. Condition: Improved - Instructions Diet, Activity, Other Instructions: Dr. Cannon Discharge Instructions Dear ROSARIO GAYTAN, Post Operative Instructions Physical activity Resume your normal everyday activity as tolerated no heavy lifting or exercise until seen by your surgeon. You may walk unlimited amounts of and climb stairs. You may resume driving the car when you feel safe and comfortable behind the wheel. Wound care If you have a bandage, leave it on, and keep dry for 48 - 72 hours. After that time discard the outer bandage. If there are tapes on the skin under the outer bandage, leave them in place. They will peel off in the next 7 to 10 days. Do Not peel them off. You may shower 2 days after surgery. If there are tapes present on the skin, they can get wet. Diet There are no dietary restrictions. Eat healthy, high-fiber foods. Drink 6 to 8 glasses of liquid each day. This will assist in keeping your bowels are regular. Pain management You may take Tylenol or acetaminophen or Ibuprofen (for example, Motrin, Advil etc.) Any pain prescription medication ordered should be taken as prescribed for moderate to severe pain. Call Dr. Cannon for any of the following: Severe pain not relieved by medication Fever of 101 or higher Excessive bleeding or drainage on dressing Inability to urinate Call the office at [phone] for a post operative appointment in 7 - 10 days. Referrals: Jourdan Cannon MD [Staff Physician] - 1 Week [facility] [place] [facility] [Provider Group] - 2 Weeks Disposition: HOME - Home Medications Comprehensive Discharge Medication List: Ambulatory Orders Aspirin/Acetaminophen/Caffeine [Excedrin Migraine Caplet] 1 each PO BID PRN Magnesium Oxide [Magnesium] 400 mg PO DAILY 10/22/18 Rizatriptan Benzoate [Rizatriptan] 10 mg PO Q12H PRN 10/22/18 Acetaminophen [Tylenol .Extra-Strength -] 1,000 mg PO Q6H PRN tablet 07/26/19 oxyCODONE HCL [Roxicodone -] 5 mg PO Q6H PRN #10 tablet MDD 4 tabs 07/26/19 This patient is new to me today: No Emergency Visit: Yes ED Registration Date: 07/25/19 Care time: The patient presented to the Emergency Department on the above date and was hospitalized for further evaluation of their emergent condition. Critical Care patient: No - Discharge Referral Referred to [facility] Med P.C.: No
--- NOTE | 2019-07-28 17:57 | PATH ---
Surgical Pathology Report Patient Name: ROSARIO GAYTAN [facility]. Rec. #: [id number] /Age/Gender: 1995 (Age: 24) / F Account: [id number] Location: [address] [place] [address]/[facility] Taken: 07/25/2019 Received: 07/26/2019 Reported: 07/28/2019 Physicians: MD Alonzo Crook M.D. Specimen(s) Received APPENDIX Clinical History Acute appendicitis Final Diagnosis APPENDIX, LAPAROSCOPIC APPENDECTOMY: ACUTE APPENDICITIS AND PERIAPPENDICITIS. Electronically Signed Aparna Blanco M.D. Gross Description Received in formalin, labeled "appendix," is a 0.7 cm. in length vermiform appendix with a stapled margin of resection and moderate attached fat. The serosa is mayes-samuels and smooth. Sectioning reveals a focally dilated lumen containing fecal material. The wall of the appendix averages 0.1 cm. in thickness. [employer] sections are submitted in one cassette. 07/27/2019 [facility]07/27/2019
== END 2019-07-26 11:43 | disposition home or self-care (01) | DRG 343 ==
LOC: FER 02:52 → UNDOADMIN 12:00 → J6S 12:00 → JASUSAT 16:23 → UNDODISIN 07-26 11:43
PROVIDERS: ATTEND Internal Medicine
PROC: 0DTJ4ZZ Resection of Appendix, Percutaneous Endoscopic Approach (ICD-10-PCS; principal; 2019-07-25 12:00)
DX: K35.80 Unspecified acute appendicitis (principal); K21.9 Gastro-esophageal reflux disease without esophagitis; G43.909 Migraine, unspecified, not intractable, without status migrainosus
CPT/HCPCS: 36415; 74177-TC; 80048; 80053; 81003; 84703; 85025; 94760; 99285-25; Q9967

== ENCOUNTER 2019-09-06 12:47 | Emergency (ER) | payer BC, OTHER ==
--- NOTE | 2019-09-06 12:50 | PDOC ---
Attending Attestation - Resident Resident Name: LenkaMikayla - ED Attending Attestation I have performed the following: I have examined & evaluated the patient, The case was reviewed & discussed with the resident, I agree w/resident's findings & plan, Exceptions are as noted - HPI HPI: 09/06/19 13:09 24yo female with no pmhx, appendectomy in July (follow up friday with dr. gallo) presents for eval of fever and chills today. 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 Pt states fever started today. States she took advil around 530a today. No assoc ear pain, sore throat, rhinorrhea, cough. No leg swelling/calf cramping. No rashes (incision is c/d/i). No cp/sob. No dysuria, but c/o urinary freq. Pt denies all other complaints. Pt arrives febrile 102. Pt does not have a PMD and did not get the flu vaccine this year. - Physicial Exam PE: 09/06/19 13:16 Gen: aaox3, nad, hot to touch, febrile heent: PERRL, EOMI, tm intact no bulging or erythema, no anterior chain cervical lymphadenopathy, posterior pharynx clear, mmm neck: supple, no meningeal signs heart: +s1s2 tachy lungs: cta b/l abd: soft, nt/nd +bs, incision to lower abd is c/d/i - absorbable suture exposed , no drainage, no warmth, no erythema, no induration/fluctuance ext: no c/c/e, ambulated with a steady gait - Medical Decision Making 09/06/19 13:18 a/p: 24yo female with fever today x 1 day -will send flu swab -tylenol for the fever -given urinary freq, will send ua, ucg -will monitor and reassess -pt is nontoxic in appearance 09/06/19 13:38 upreg neg 09/06/19 13:42 ua does not show infection 09/06/19 14:02 pt with 100.5 temp after tylenol will add motrin 09/06/19 14:05 pt states feeling better, no longer with chills, now feels hot drinking juice, playing on her phone no meningeal signs on exam 09/06/19 14:07 no longer with garcia or body aches, feels better 09/06/19 14:18 flu neg suspect viral syndrome recommend tylenol and motrin for symptoms and po intake stable for dc to home
[2019-09-06 12:52] VITALS: BP 132/67; BMI 27.1
[2019-09-06] MEDS ORDERED: ACETAMINOPHEN 500 MG TABLET (FP) PO ONE (12:57)
--- NOTE | 2019-09-06 12:59 | PDOC ---
History of Present Illness - General Stated Complaint: CHILLS, BODY ACHES Time Seen by Provider: 09/06/19 12:49 - History of Present Illness Initial Comments: Adelaida Clarke is a 24yo otherwise healthy woman who presents to the ED reporting chills, headache and body aches that started overnight. She is currently about 6 weeks s/p appendectomy and was concerned that the symptoms could be related to her recent surgery, though she reports that her wounds appear to be healing well. She denies any nasal/sinus congestion, sore throat, rhinorrhea, cough, ear pain, nausea/vomiting, change in bowel habits or dysuria. She does endorse urinary frequency, though she says this is fairly typical, as well as frequent frontal migraines (follows with neurology). 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 The children were in school last week and Friday, and many were sick with respiratory symptoms. She did not receive the flu shot this year. Past History - Past Medical History Allergies/Adverse Reactions: Allergies Allergy/AdvReac Type Severity Reaction Status Date / Time No Known Allergies Allergy Verified 09/06/19 12:49 Home Medications: Ambulatory Orders Ibuprofen [Advil -] 400 mg PO ONCE 09/06/19 Asthma: No COPD: No Diabetes: No HTN: No - Surgical History Appendectomy: Yes - Immunization History Immunization Up to Date: Yes - Psycho Social/Smoking Cessation Hx Smoking History: Never smoked Have you smoked in the past 12 months: No Information on smoking cessation initiated: No Hx Alcohol Use: (occasional) Drug/Substance Use Hx: No Substance Use Type: Alcohol Hx Substance Use Treatment: No Review of Systems - Review of Systems Comments:: General: +Fever/chills, no weight or appetite change, +body aches HEENT: No changes in vision, no changes in hearing, no congestion, no sore throat, +BERMUDEZ CV: No chest pain, no palpitations, no LE edema Pulm: No SOB, no cough, no wheezing GI: No nausea or vomiting, no change in bowel habits, no melena : + frequency, no urgency, no dysuria Musc: No back pain, no joint swelling, no recent injury Skin: No rash, no lesions, no erythema Endo: No excessive thirst, no heat/cold intolerance Heme: No unusual bruising or bleeding, no swollen glands Neuro: No syncope, no numbness/tingling, no focal weakness Vasc: No claudication Psych: No recent change in mood, no SI or HI *Physical Exam - Vital Signs Last Vital Signs Temp Pulse Resp BP Pulse Ox 102.6 F H 102 H 20 132/67 99 09/06/19 12:47 09/06/19 12:47 09/06/19 12:47 09/06/19 12:47 09/06/19 12:47 - Physical Exam General: Comfortable, no acute distress HEENT: Atraumatic, PERRL, EOMI, MMM, voice normal, normal neck ROM, no LAD, no sinus tenderness, TM clear b/l, no tonsillar/pharyngeal erythema or exudate Cards: RRR, no murmur appreciated Pulm: Comfortable on room air, clear to auscultation bilaterally Abd: Soft, nontender, nondistended. Lap appy incisions c/d/i, nearly healed, w/ dissolvable suture ends visible on suprapubic and LLQ incisions. Ext: Atraumatic. No LE edema. ROM intact. WWP Skin: Normal color, no rashes or lesions Neuro: A&Ox3, CN grossly intact, normal speech, motor/sensory grossly intact and symmetric Psych: Mood appropriate to situation Medical Decision Making - Medical Decision Making 09/06/19 12:59 Adelaida Clarke is a 24yo otherwise healthy woman who presents to the ED reporting chills, frontal headache and body aches that started overnight. She has no specific symptoms. She works as a headstart teacher, and many were sick last week with respiratory symptoms. - Febrile to 102.6 on arrival - Broad differential given lack of specific symptoms, but early viral URI or influenza is likely given exposures. - As she works as a teacher and has only had symptoms approximately 12 hours, will test for flu - UA, UCx to eval for UTI - Acetaminophen for fever and body aches 09/06/19 14:02 - UA negative - Urine preg negative - Temp still 100.5. Ibuprofen 600mg ordered for continued fever 09/06/19 14:23 - Flu negative - Discussed home care for viral infection at length. Advised that she may develop respiratory symptoms, should stay home from work while febrile. Advised to establish care with a primary care physician. Discussed with Dr Ayesha Og PGY2 Discharge - Discharge Information Problems reviewed: Yes Clinical Impression/Diagnosis: Viral infection Condition: Stable Disposition: HOME - Admission No - Follow up/Referral Referrals: [facility] [place] [Provider Group] - Patient Discharge Instructions Patient Printed Discharge Instructions: DI for Viral Syndrome Additional Instructions: Discharge Instructions: You were seen in the emergency department for fever, chills, and headache. You had a flu test sent that was negative. Your symptoms are most likely caused by a viral infection such as the common cold. You should feel better within a week without any additional treatment. Home Care and Follow Up: - You may return to work once you have been free of fever for 24 hours. - Make sure you are drinking plenty of fluids while you are sick. Increase your normal fluid intake. It is OK if you do not feel like eating as long as you are staying well hydrated - You may use medications such as acetaminophen (Tylenol) 650-1000mg or ibuprofen (Advil, Motrin) 400-600mg every 6 hours as needed for pain or fever over 101F - Consider placing a humidifier in your room overnight to help relieve congestion and reduce drying of your nose and mouth. - Use throat lozenges (cough drops) for sore throat or cough - If you use additional cold medications, make sure they do not contain medicines you are already taking such as acetaminophen or ibuprofen - You should feel better within a week, though cough can sometimes last longer. If you are not feeling better in a week, follow up with your primary doctor. If you need to see a new doctor, you have been referred to the [facility] primary care gilmer. - Seek immediate care if you have worsening symptoms, you are unable to stay hydrated, you develop high fevers over 104F that do not come down with medication, or you have any other medical emergency. - Post Discharge Activity Work/Back to School Note: Back to Work
[2019-09-06] MEDS ORDERED: ACETAMINOPHEN 500 MG TABLET (FP) ONE (13:04)
[2019-09-06 13:57] LABS: EPITHELIAL CELLS FEW /hpf
[2019-09-06] MEDS ORDERED: IBUPROFEN 600 MG TABLET (FP) PO ONE ×2 (14:02→14:07)
[2019-09-06 14:33] VITALS: PULSE 98; TEMP 99.2
== END 2019-09-06 14:35 | disposition home or self-care (01) ==
LOC: FER 12:47
DX: B34.9 Viral infection, unspecified (principal)
CPT/HCPCS: 81003; 81015; 84703; 87804; 99285-25